=== PATIENT | female | born 1965 | race Caucasian/White ===

== ENCOUNTER 2016-05-01 10:01 | Outpatient (CLI) | payer MEDICAID | END 2016-05-01 10:02 | disposition home or self-care (01) | DX: Z12.31 Encounter for screening mammogram for malignant neoplasm of breast (principal) ==

== ENCOUNTER 2016-09-29 09:17 | Outpatient (CLI) | payer MEDICAID | END 2016-09-29 09:18 | disposition home or self-care (01) | LOC: RT.S 09:17 | PROVIDERS: ATTEND Nurse Practitioner Family | DX: R07.89 Other chest pain (principal) | CPT/HCPCS: 93005 ==

== ENCOUNTER 2016-10-02 10:11 | Outpatient (CLI) | payer MEDICAID ==
[2016-10-02 18:07] LABS: BASOPHILS % (AUTO) 0.9 %; EOSINOPHILS # (AUTO) 0.4 10^3/uL (0.0-0.7); EOSINOPHILS % (AUTO) 6.7 %; HCT - HEMATOCRIT 42.2 % (37.0-47.0); HGB - HEMOGLOBIN 14.1 g/dL (12.0-16.0); LYMPHOCYTES # (AUTO) 1.2 10^3/uL (1.5-3.5); LYMPHOCYTES % (AUTO) 22.3 %; MEAN CORPUSCULAR HEMOGLOBIN 30.7 pg (27.0-31.0); MEAN CORPUSCULAR HGB CONC 33.5 g/dL (32.0-36.0); MEAN CORPUSCULAR VOLUME 91.6 fL (81.0-99.0); MEAN PLATELET VOLUME 8.5 fL (7.9-10.8); MONOCYTES # (AUTO) 0.4 10^3/uL (0.0-1.0); MONOCYTES % (AUTO) 8.3 %; NEUTROPHILS # (AUTO) 3.3 10^3/uL (1.5-6.6); NEUTROPHILS % (AUTO) 61.8 %; NUCLEATED RED BLOOD CELLS AUTO 0.1 /100WBC; RED CELL DISTRIBUTION WIDTH 13.9 % (12.0-15.0); UNCORRECTED WHITE BLOOD COUNT 5.3 x10^3/uL; WHITE BLOOD COUNT 5.3 x10^3/uL (4.8-10.8)
[2016-10-02 18:28] LABS: ALBUMIN/GLOBULIN RATIO 1.2 (1.0-2.2); BILIRUBIN,TOTAL 0.4 mg/dL (0.2-1.0); BUN - BLOOD UREA NITROGEN 12 mg/dL (6-20); CARBON DIOXIDE - CO2 30 mmol/L (21-32); CHLORIDE 102 mmol/L (101-111); CHOL/HDL RATIO 2.9 (<4.4); CHOLESTEROL 217 mg/dL; CREATININE 0.6 mg/dL (0.4-1.0); GFR - MDRD 105 (>89); GLUCOSE 89 mg/dL (70-100); HDL CHOLESTEROL 74 mg/dL; LDL/HDL RATIO 1.7 (<4.4); POTASSIUM 3.7 mmol/L (3.5-5.0); SODIUM 139 mmol/L (135-145); TOTAL PROTEIN 7.2 g/dL (6.7-8.2); TRIGLYCERIDES 68 mg/dL; VLDL CHOLESTEROL 14 mg/dL
== END 2016-10-02 10:12 | disposition home or self-care (01) ==
LOC: LAB.S 10:11
PROVIDERS: ATTEND Nurse Practitioner Family
DX: R53.83 Other fatigue (principal); R07.89 Other chest pain; M79.1 Myalgia
CPT/HCPCS: 36415; 80053; 80061; 84443; 85025; 85651; 86140

== ENCOUNTER 2016-12-15 11:15 | Outpatient (CLI) | payer MEDICAID ==
[2016-12-15 18:57] LABS: BILIRUBIN,URINE NEGATIVE (NEGATIVE)
[2016-12-15 19:17] LABS: WBC,URINE >25 /HPF (0-5)
[2016-12-15 19:18] LABS: UR CULTURE IF IND INDICATED
== END 2016-12-15 11:16 | disposition home or self-care (01) ==
LOC: LAB.R 11:15
PROVIDERS: ATTEND Nurse Practitioner Family
DX: N39.0 Urinary tract infection, site not specified (principal)
CPT/HCPCS: 81001; 87086

== ENCOUNTER 2017-01-04 13:56 | Outpatient (CLI) | payer MEDICAID ==
--- NOTE | 2017-01-04 18:14 | XRAY Report ---
FOUR-VIEW RIGHT KNEE: 01/04/2017 CLINICAL INDICATION: Pain. FINDINGS: Frontal, lateral, bilateral oblique views of the right knee demonstrate no evidence of fra cture or dislocation. Minimal osteoarthritis is present, with a tiny medial osteophyte. There is no effusion. No radiopaque foreign body is seen in the soft tissues. IMPRESSION: MINIMAL OSTEOARTHRITIS. NO EVIDENCE OF FRACTURE. JOB #: [id number] EXT JOB #:[id number]
== END 2017-01-04 13:57 | disposition home or self-care (01) ==
LOC: DI.S 13:56
PROVIDERS: ATTEND Nurse Practitioner Family
DX: M17.11 Unilateral primary osteoarthritis, right knee (principal)

== ENCOUNTER 2017-01-22 08:00 | Outpatient (CLI) | payer MEDICAID | END 2017-01-22 08:01 | disposition home or self-care (01) | LOC: LAB.R 08:00 | PROVIDERS: ATTEND Nurse Practitioner Family | DX: Z79.891 Long term (current) use of opiate analgesic (principal) | CPT/HCPCS: 80307 ==

== ENCOUNTER 2018-01-22 08:41 | Outpatient (CLI) | payer MEDICAID ==
[2018-01-22 19:41] LABS: MUDS CUTOFF CONCENTRATIONS CUTOFF CONC BELOW:
[2018-01-22 20:20] LABS: COCAINE SCREEN URINE NEGATIVE (NEGATIVE); METHAMPHETAMINES SCREEN, URINE NEGATIVE (NEGATIVE); OPIATE SCREEN, URINE NEGATIVE (NEGATIVE)
[2018-01-22 20:21] LABS: AMPHETAMINE SCREEN,URINE NEGATIVE (NEGATIVE); BENZODIAZEPINES SCREEN, URINE NEGATIVE (NEGATIVE); METHADONE SCREEN, URINE NEGATIVE (NEGATIVE); OXYCODONE SCREEN, URINE NEGATIVE (NEGATIVE); PROPOXYPHENE SCREEN, URINE NEGATIVE (NEGATIVE); TRICYCLIC ANTIDEPRESSANT,URINE NEGATIVE (NEGATIVE)
== END 2018-01-22 08:42 | disposition home or self-care (01) ==
LOC: LAB.R 08:41
PROVIDERS: ATTEND Nurse Practitioner Family
DX: Z79.891 Long term (current) use of opiate analgesic (principal)
CPT/HCPCS: 80306

== ENCOUNTER 2018-02-04 10:41 | Outpatient (CLI) | payer MEDICAID ==
--- NOTE | 2018-02-04 15:26 | Ultrasound Report ---
Reason: POSTMENOPAUSAL BLEEDING, MENOMETRORRHAGIA Procedure Date: 02/04/2018 Accession Number: [id number] / [id number] Procedure: US - Pelvic w/Transvaginal CPT Code: FULL RESULT: EXAM: PELVIC ULTRASOUND EXAM DATE: 02/04/2018 11:37 AM. CLINICAL HISTORY: Postmenopausal bleeding, menometrorrhagia. COMPARISON: None. TECHNIQUE: Realtime transabdominal pelvic scan performed to identify the uterus and adnexa and as an overview of other pelvic structures, followed by transvaginal scan to provide greater detail of the uterus and adnexa, with static image documentation. FINDINGS: The examination is limited by poor acoustic windows. Uterus: 6.8 x 3.2 x 4.2 cm, volume 48 cc. Anteverted position. Normal overall size and echotexture. Masses: None. Endometrium: 4 mm. Normal. Cervix: Unremarkable. The bilateral ovaries were not seen by transabdominal or transvaginal fashion. Free Fluid: None. Other: None. IMPRESSION: Limited examination. No endometrial abnormalities identified. RADIA
== END 2018-02-04 10:42 | disposition home or self-care (01) ==
LOC: DI 10:41
PROVIDERS: ATTEND Nurse Practitioner Family
DX: N95.0 Postmenopausal bleeding (principal)
CPT/HCPCS: 76830; 76856

== ENCOUNTER 2018-02-12 12:00 | Outpatient (CLI) | payer MEDICAID ==
[2018-02-12 12:46] LABS: ALBUMIN/GLOBULIN RATIO 1.3 (1.0-2.2); BILIRUBIN,TOTAL 0.6 mg/dL (0.2-1.0); CREATININE 0.9 mg/dL (0.4-1.0); TOTAL PROTEIN 7.2 g/dL (6.7-8.2)
[2018-02-12 12:47] LABS: BASOPHILS % (AUTO) 0.6 %; EOSINOPHILS # (AUTO) 0.3 10^3/uL (0.0-0.7); EOSINOPHILS % (AUTO) 5.4 %; HGB - HEMOGLOBIN 14.1 g/dL (12.0-16.0); LYMPHOCYTES # (AUTO) 1.4 10^3/uL (1.5-3.5); LYMPHOCYTES % (AUTO) 25.9 %; MEAN CORPUSCULAR HEMOGLOBIN 30.7 pg (27.0-31.0); MEAN CORPUSCULAR HGB CONC 34.4 g/dL (32.0-36.0); MEAN CORPUSCULAR VOLUME 89.2 fL (81.0-99.0); MEAN PLATELET VOLUME 8.2 fL (7.9-10.8); MONOCYTES # (AUTO) 0.3 10^3/uL (0.0-1.0); MONOCYTES % (AUTO) 6.5 %; NEUTROPHILS # (AUTO) 3.3 10^3/uL (1.5-6.6); NEUTROPHILS % (AUTO) 61.6 %; PLT - PLATELET COUNT 279 10^3/uL (130-450); RED BLOOD COUNT 4.59 10^6/uL (4.20-5.40); RED CELL DISTRIBUTION WIDTH 13.8 % (12.0-15.0); WHITE BLOOD COUNT 5.3 x10^3/uL (4.8-10.8)
--- NOTE | 2018-02-12 15:03 | XRAY Report ---
Reason: POST LETICIA BLEEDING Procedure Date: 02/12/2018 Accession Number: [id number] / [id number] Procedure: XR - Chest 2 View X-Ray CPT Code: 33189 FULL RESULT: EXAM: CHEST RADIOGRAPHY EXAM DATE: 02/12/2018 12:48 PM. CLINICAL HISTORY: Postmenopausal bleeding. Hysteroscopy with D and C. Preop. COMPARISON: 03/17/2016. TECHNIQUE: 2 views. FINDINGS: Lungs/Pleura: Linear right lower lung scar/atelectasis. Interstitium is prominent. No consolidation. No vascular congestion. No pneumothorax. No pleural effusions. Mediastinum: Heart size is normal. Aorta is mildly tortuous. Small hiatal hernia. Other: Degenerative changes of the thoracic spine. IMPRESSION: 1. No acute disease in the chest. RADIA
== END 2018-02-12 12:01 | disposition home or self-care (01) ==
LOC: LAB 12:00 → DI 12:01
PROVIDERS: ATTEND Obstetrics & Gynecology
DX: Z01.818 Encounter for other preprocedural examination (principal); N95.0 Postmenopausal bleeding
CPT/HCPCS: 36415; 71046; 80053; 85025; 86850; 86900; 86901

== ENCOUNTER 2018-02-13 07:56 | Day surgery (SDC) | payer MEDICAID ==
[2018-02-13] MEDS ORDERED: ceFAZolin 2 GM/50 ML 2 GM/50 ML BAG IV ONE (08:02)
[2018-02-13] MEDS ORDERED: LACTATED RINGERS 1,000 ML IV ONE (08:26)
--- NOTE | 2018-02-13 09:08 | ANESTHESIA ---
Pre-Anesthesia VS, & Labs - Diagnosis Post menopausal bleeding - Procedure Hysterscopy w/ D&C Vital Signs: Temp Pulse Resp BP Pulse Ox 36.1 C L 92 16 151/92 H 96 02/13/18 08:10 02/13/18 08:10 02/13/18 08:10 02/13/18 08:10 02/13/18 08:10 Height 5 ft 3 in Weight (kg) 113.7 kg - NPO >8 hours - Is Patient ?: No Home Medications and Allergies Home Medications: Ambulatory Orders Acetaminophen [Tylenol Extra Strength] 500 mg PO 02/13/18 Bupropion HCl [Bupropion Xl] 150 mg PO 02/13/18 hydroCHLOROthiazide [Hydrochlorothiazide] 25 mg PO 02/13/18 Citalopram Hydrobromide [Citalopram HBr] 40 mg PO DAILY 12/23/14 Mesalamine [Lialda] 2 tab PO BID 12/23/14 Acetaminophen [Tylenol Extra Strength] 500 mg PO 02/13/18 Bupropion HCl [Bupropion Xl] 150 mg PO 02/13/18 hydroCHLOROthiazide [Hydrochlorothiazide] 25 mg PO 02/13/18 Allergies/Adverse Reactions: Allergies Allergy/AdvReac Type Severity Reaction Status Date / Time Latex, Natural Rubber Allergy Intermediate Hives Verified 02/12/18 12:29 pineapple Allergy Hives Verified 02/12/18 12:29 wool Allergy Rash Verified 02/12/18 12:29 zheng butter Allergy Rash Uncoded 02/12/18 12:29 Anes History & Medical History - Anesthetic History Anesthesia Complications: reports: No previous complications - Medical History Cardiovascular: reports: Hypertension Pulmonary: reports: None Gastrointestinal: reports: GERD (Resolved since lap zuleyma), Hiatal hernia, Colon polyps, Ulcerative colitis, Crohn's disease Urinary: reports: None Neuro: reports: None Musculoskeletal: reports: Osteoarthritis, Chronic back pain Endocrine/Autoimmune: reports: None Blood Disorders: reports: None Skin: reports: Eczema Smoking Status: Current every day smoker (1/2 pk per day for 20+ years) Psychosocial: reports: Depression, Anxiety - Surgical History General: Hiatal hernia repair, Colonoscopy, EGD Exam General: Alert, Oriented x3, Cooperative, No acute distress Dental: WNL, Other (Broken molar left lower side) Mouth Openin Fingerbreadth Neck Mobility: Normal Mallampati classification: II Thyromental Distance: less than 4 cm Respiratory: Lungs clear, Normal breath sounds, No respiratory distress, No acc essory muscle use Cardiovascular: Regular rate, Normal S1, Normal S2, No murmurs Mental/Cognitive Status: Alert/Oriented X3, Normal for patient Cognitive Status: Within normal limits Plan Anesthesia Type: General Consent for Procedure(s) Verified and Reviewed: Yes Code Status: Attempt Resuscitation ASA classification: 3-Severe systemic disease Is this case an emergency?: No
[2018-02-13] MEDS ORDERED: DEXAMETHASONE 4 MG/ML VIAL IVP ONE (09:45)
[2018-02-13] MEDS ORDERED: PROPOFOL 200 MG/20 ML VIAL IVP ONE (09:45)
[2018-02-13] MEDS ORDERED: fentaNYL 100 MCG/2 ML VIAL IVP ONE (09:45)
[2018-02-13] MEDS ORDERED: ONDANSETRON 4 MG/2 ML VIAL IVP ONE (09:45)
[2018-02-13] MEDS ORDERED: KETOROLAC 30 MG/ML VIAL IVP ONE (09:45)
[2018-02-13] MEDS ORDERED: LIDOCAINE-MPF 2% 5 ML VIAL IM ONE (09:45)
[2018-02-13] MEDS ORDERED: MIDAZOLAM 2 MG/2 ML VIAL IVP ONE (09:45)
--- NOTE | 2018-02-13 10:17 | OPERATIVE REPORT ---
Operative Report - General Procedure Date: 02/13/18 Planned Procedure: hysterscopy with D&D Pre-Op Diagnosis: postmenopausel bleeding Procedure Performed: hysterscopy with D&D Post Op Diagnosis: endometrial polyp - Procedure Note Primary Surgeon: Desmond Rogers MD Anesthesia Provider: George Wilson CRNA Anesthesia Technique: General LMA Pathology: endometrial polyps and endometrium IV Fluids (mL): 600 Estimated Blood Loss (mL): 5 Urine Output (mL): 20 Complications: 350 ml deficit with Normal saline #[id number]
[2018-02-13] MEDS ORDERED: ACETAMINOPHEN 1,000 MG/100 ML 100 ML IV ONE (10:19)
[2018-02-13] MEDS ORDERED: LORazepam 2 MG/ML VIAL IVP PRN (10:32)
[2018-02-13] MEDS ORDERED: ONDANSETRON 4 MG/2 ML VIAL IVP PRN (10:32)
[2018-02-13] MEDS ORDERED: HYDROmorphone 0.5 MG/0.5 ML SYRINGE IVP PRN (10:32)
[2018-02-13] MEDS ORDERED: HYDROcod/ACETAM 5/325 MG TABLET PO PRN (10:32)
[2018-02-13] MEDS ORDERED: HYDROcod/ACETAM 5/325 MG TABLET ONE (10:59)
[2018-02-13 11:33] VITALS: BP 100/80
--- NOTE | 2018-02-13 13:27 | OPERATIVE REPORT ---
DATE OF SERVICE: 02/13/2018 Physician: Desmond Rogers MD PREOPERATIVE DIAGNOSIS: Postmenopausal bleeding. POSTOPERATIVE DIAGNOSIS: Postmenopausal bleeding with endometrial polyps. PROCEDURE: Hysteroscopy with D and C. SURGEON: Desmond Rogers MD ANESTHESIA: General via LMA with George Wilson CRNA. ESTIMATED BLOOD LOSS: Less than 5 mL IV FLUIDS: 600 mL URINE OUTPUT: 20 mL. Fluid deficit with normal saline was 350. FINDINGS: Pelvic examination under anesthesia was unrewarding because of abdominal wall thickness. Upon entering the vagina. The cervix resided very high in the pelvic cavity. The endometrial cavity showed evidence of several polyps, both in the left and right cornual area. These were both removed as well as additional tissue being removed for pathologic evaluation. DESCRIPTION OF PROCEDURE: Following adequate general anesthesia via LMA, the patient was placed in t he dorsal lithotomy position in Octavio stirrups. At this point, she was prepped and draped in the usu al fashion. A timeout was performed, which concerns were addressed. A speculum was placed in the va vee. The cervix was visualized and noted to be residing very high in the pelvis. This was not unus ual considering she is a nulliparous woman. The cervix was grasped with a single-tooth tenaculum and then the os was identified. It was dilated up to 6 mm, sounded to 7 mm, and then the hysteroscope w as attempted to be placed. The cervix was dilated up an additional 1 mm to 7 and then the hysterosco pe was inserted without difficulty. The entire endometrial cavity was visualized and there were poly ps noted at both cornual areas. The remainder of the endometrial cavity showed a small sessile anter ior polyp; however, there was no evidence of any abnormal coloring or calcifications. So at this poi nt, the polyps were removed with the MyoSure LITE. Care was taken to assure that both polyps were co mpletely removed as well as the anterior polyp. Additional tissue was removed and sent for pathologi c evaluation. The endometrial cavity was reinspected. The polyps had been removed. There was no ev idence of any active bleeding. The hysteroscope was removed. The single-tooth tenaculum was release d. The patient was taken to recovery in stable condition. TD: 02/13/2018 10:38
== END 2018-02-13 07:57 | disposition home or self-care (01) ==
LOC: SDS 07:56
PROVIDERS: ATTEND Obstetrics & Gynecology
PROC: 0UDB8ZZ Extraction of Endometrium, Via Natural or Artificial Opening Endoscopic (ICD-10-PCS; principal; 2018-02-13 09:15)
DX: N95.0 Postmenopausal bleeding (principal); N84.0 Polyp of corpus uteri; I10 Essential (primary) hypertension; J45.909 Unspecified asthma, uncomplicated; F17.210 Nicotine dependence, cigarettes, uncomplicated; E66.01 Morbid (severe) obesity due to excess calories; Z80.49 Family history of malignant neoplasm of other genital organs; Z84.89 Family history of other specified conditions; Z80.0 Family history of malignant neoplasm of digestive organs; Z68.41 Body mass index [BMI] 40.0-44.9, adult
CPT/HCPCS: 58558; A9270; J0131; J0690; J7120

== ENCOUNTER 2018-04-23 10:01 | Observation (INO) | payer MEDICAID ==
[2018-04-23 10:22] LABS: BASOPHILS # (AUTO) 0.1 10^3/uL (0.0-0.1); EOSINOPHILS # (AUTO) 0.4 10^3/uL (0.0-0.7); EOSINOPHILS % (AUTO) 6.1 %; HGB - HEMOGLOBIN 13.8 g/dL (12.0-16.0); LYMPHOCYTES # (AUTO) 1.6 10^3/uL (1.5-3.5); MEAN CORPUSCULAR HEMOGLOBIN 30.4 pg (27.0-31.0); MEAN CORPUSCULAR HGB CONC 34.6 g/dL (32.0-36.0); MEAN CORPUSCULAR VOLUME 87.9 fL (81.0-99.0); MEAN PLATELET VOLUME 7.7 fL (7.9-10.8); MONOCYTES # (AUTO) 0.5 10^3/uL (0.0-1.0); MONOCYTES % (AUTO) 7.1 %; NEUTROPHILS # (AUTO) 4.2 10^3/uL (1.5-6.6); NEUTROPHILS % (AUTO) 61.8 %; PLT - PLATELET COUNT 291 10^3/uL (130-450); RED BLOOD COUNT 4.55 10^6/uL (4.20-5.40); RED CELL DISTRIBUTION WIDTH 13.9 % (12.0-15.0); WHITE BLOOD COUNT 6.7 x10^3/uL (4.8-10.8)
[2018-04-23 10:34] LABS: ALBUMIN 4.1 g/dL (3.2-5.5); ALBUMIN/GLOBULIN RATIO 1.2 (1.0-2.2); BILIRUBIN,TOTAL 0.3 mg/dL (0.2-1.0); CALCIUM 9.2 mg/dL (8.5-10.3); CREATININE 0.7 mg/dL (0.4-1.0); TOTAL PROTEIN 7.6 g/dL (6.7-8.2)
[2018-04-24] MEDS ORDERED: oxyCODONE 5 MG TABLET PO PRN (14:57)
[2018-04-24] MEDS ORDERED: ONDANSETRON 4 MG/2 ML VIAL IVP PRN ×2 (14:57→16:42)
[2018-04-24] MEDS ORDERED: LORazepam 2 MG/ML VIAL IVP PRN ×2 (14:57→16:42)
[2018-04-24] MEDS ORDERED: HYDROmorphone 1 MG/ML CARPUJECT IVP PRN ×2 (14:57→16:42)
[2018-04-24] MEDS ORDERED: ACETAMINOPHEN 500 MG TABLET PO SCH (15:00)
[2018-04-24] MEDS ORDERED: LACTATED RINGERS 1,000 ML IV SCH (15:00)
--- NOTE | 2018-04-24 16:12 | CONSULTATION NOTE ---
Referring Provider Name of Referring Provider:: Dr. Solitario Consult Date: 04/24/18 Chief Complaint - Chief Complaint Chief Complaint: wide complex tachycardia in ICU during OR case History of Present Illness - Admitted From Admitted From:: Home/PACU - History Obtained From Records Reviewed: [facility] History obtained from: [facility], Anesthesia Exam Limitations: she is sedated after surgery - History of Present Illness HPI Comment/Other: She is a 53 year old who has a PMH of undiagnosed JAYME and underwent an attempted Lap hyster converted to vag hyster. During the case she had a 6 beat run of a wide complex tachycardia and she has been consistently hypertensive since before the case started. She began the case at 178/100 and stayed high during the case. She has no hx of structural heart disease, no LVH, no CHF. She is described as a snorer. In the PACU there was some anxiety and she received ativan which made her snoring and apnea worse. She would desat to 70's% and then wake herself up w snore decorating consultant would gently touch shoulder and ask her to take a deep breath. Since the single run of the wide complex rhythm she has not had anymore arrhythmias, and post op EKG has NSR, no acute STTW changes. History - Past Medical History Cardiovascular: reports: Hypertension Respiratory: reports: None Neuro: reports: None Endocrine/Autoimmune: reports: None GI: reports: GERD, Hiatal hernia (with fundoplication 05/2015), Colon polyps (tubular adenoma, serrated), Crohn's disease (Usually quiescent. Only flares up when there is times of stress like this last year.) [employer]: reports: Other (, menopause 2013. 2018 postmenopausal bleeding. Hysteroscopy and D&C w polyp that was benign 01/10/18. Mom has Olvera syndrome and both mom and grandmom w endometrial ca. s/p Vag hyster after failed lap hyster with BSO today.) : reports: None HEENT: reports: Chronic vision loss Psych: reports: Depression (adjustment disorder), Anxiety, Claustrophobia Musculoskeletal: reports: Osteoarthritis Derm: reports: Eczema MRSA Hx?: No - Past Surgical History General: reports: Hiatal hernia repair, Colonoscopy, EGD, Other /[employer]: reports: Other ([facility]) - Family & Social History Family History Comment/Other: M grandmother from endometrial ca with Olvera syndrome. Mom alive w Olvera syndrome, OA. Father alive w OA, HTN, CAD w bypass and stent. Siblings: 1 brother healthy (all other sibs adopted). Children: 0 Living arrangement: At home Living Situation: With friend(s) Social History Notes: 1/2 pack per day cigarrettes since 1991. No alcohol abuse hx. She does smoke occasional cannabis or cannabis drops. But no history of cocaine, heroin, LSD, methamphetamines. She is from [place]. Lived in the [facility]. She was living with her boyfriend, and they broke up, and she did not have a job and did not have a place to live so moved in with her best friend 4 years ago [place]. She is been living here since. 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 She is worked at [employer], and has been on her feet all of her life. She has been disabled for over a year because of a deteriorated knee, and osteoarthritis of the right knee. She currently does have a boyfriend, but still lives with her best friend. - Substance History Use: Uses substance without health or social issues: Tobacco Abuse: Recurrent use of substance despite neg consequences: NONE Dependence: Experiences withdrawal or developed tolerances: NONE Tobacco Details: Cigarettes - POLST Patient has POLST: No POLST Status: Full Code Meds/Allgy - Home Medications Home Medications: Ambulatory Orders Medication Instructions Recorded Confirmed Citalopram Hydrobromide 20 mg PO DAILY 12/23/14 04/24/18 [Citalopram HBr] Mesalamine [Lialda] 2.4 gm PO BID 12/23/14 04/24/18 Acetaminophen [Tylenol Extra 500 mg PO Q6H PRN 02/13/18 04/24/18 Strength] Bupropion HCl [Bupropion Xl] 150 mg PO BID 02/13/18 04/24/18 hydroCHLOROthiazide 25 mg PO DAILY 02/13/18 04/24/18 [Hydrochlorothiazide] Albuterol Sulf [Ventolin Hfa 2 puffs INH Q4HR PRN 04/22/18 04/24/18 Inhaler] Zolpidem Tartrate 5 mg PO QPM 04/22/18 04/24/18 traMADol [Ultram] 50 mg PO BID PRN 04/22/18 04/24/18 - Allergies Allergies/Adverse Reactions: Allergies Allergy/AdvReac Type Severity Reaction Status Date / Time Latex, Natural Rubber Allergy Intermediate Hives Verified 02/12/18 12:29 emollient combination no. 21 Allergy Rash Verified 04/24/18 15:29 [From [employer] Butter] pineapple Allergy Hives Verified 02/12/18 12:29 wool Allergy Rash Verified 02/12/18 12:29 Review of Systems - Constitutional Constitutional: reports: Fatigue (all the time, even during the day), Other (ROS is from her roommate since patient is sedated and confused after anesthesia). denies: Fever, Chills, Weakness, Poor appetite, Diaphoresis, Night sweats - Eyes Eyes: reports: Blurred vision, Other (astigmatism). denies: Pain, Irritation, Amaurosis, Spots in vision, Field loss, Vision loss, Dipolpia - Ears, Nose & Throat Ears, Nose & Throat: denies: Ear pain, Hearing loss, Hearing aids, Tinnitus, Vertigo, Nasal pain, Nasal discharge, Nasal congestion, Postnasal drainage - Cardiovascular Cariovascular: reports: Exertional dyspnea, Decr. exercise tolerance (over the last few years, but can still walk on level ground and hikes w her boyfriend). denies: Irregular heart rate, Palpitations, Chest pain, Edema, Syncope - Respiratory Respiratory: reports: Snoring. denies: Cough, Sputum production, Wheezing, Hemoptysis, Orthopnea, SOB at rest, SOB with exertion, Apnea, Stridor - Gastrointestinal Gastrointestinal: reports: Abdominal pain (with flares of IBD), Abdominal distention, Diarrhea, Reflux/heartburn. denies: Constipation, Change in bowel habits, Rectal bleeding, Black stools, Bloody stools, Nausea, Vomiting - Genitourinary Genitourinary: denies: Dysuria, Frequency, Urgency, Hematuria, Incontinence - Musculoskeletal Musculoskeletal: reports: Back pain, Joint pain. denies: Muscle pain, Muscle aches, Stiffness, Limited range of motion, Muscle weakness - Integumentary Integumentary: denies: Rash, Pruritis, Lesions, Dryness - Neurological Neurological: denies: General weakness, Focal weakness, Headache, Dizziness, Numbness, Memory problems - Psychiatric Psychiatric: reports: Depression, Anxiety, Other (The last year has been really stressful on her. She was unemployed, having depend on her roommate for everything. Struggle to get disability. It was very difficult. This caused her inflammatory bowel disease to flare.) - Endocrine Endocrine: denies: Polyuria, Polydypsia, Polyphagia - Hematologic/Lymphatic Hematologic/Lymphatic: denies: Anemia, Bruising, Petechiae Exam - Vital Signs Reviewed Vital Signs: Yes - Physical Exam General Appearance: positive: Lethargic, Other (Short statured, moderately overweight white female with dyed hair, tattoos, confused in the postoperative setting with slurred speech, episodes of apnea requiring frequent prompting by the nurses to have a deep breath) Eyes Bilateral: positive: PERRL, EOMI ENT: positive: Dry mucous membranes Neck: positive: No JVD. negative: Stiff neck, Carotid bruit Respiratory: positive: Chest non-tender, Other (Snoring respirations when she falls asleep, followed by few moments of apnea, then normal respiration when stimulated. No respiratory distress.). negative: Wheezes, Rales, Rhonchi Cardiovascular: positive: Regular rate & rhythm. negative: Systolic murmur, G allop/S4, Friction rub Peripheral Pulses: positive: 1+ Abdomen: positive: Other (Hypoactive bowel sounds, slightly distended from having a laparoscopic attempt. But no rebound or guarding. She is not comfortable with my palpation and does murmur, and is try to withdraw from pain. Asked me to not do that.) Skin: positive: Color nml, No rash, Warm, Dry Extremities: positive: Non-tender, No pedal edema Neurologic/Psychiatric: positive: CN's nml (2-12), Motor nml, Disoriented to person, Disoriented to time, Slurred/abnml speech Conclusion/Plan - Diagnosis Diagnosis: 1. Wide-complex tachycardia in a perioperative setting in a patient is morbidly obese, short statured, elevated blood pressure that may be chronic, and a history of possible sleep apnea. Differential diagnosis would include left ventricular hypertrophy with PVCs. Left ventricular hypertrophy with V. tach. A wide-complex tachycardia that is benign. Her postoperative EKG shows no signs of ischemia, but ischemia is a possibility. Exam is negative for valvular heart disease but that is a possibility. Plan: Continue to monitor t he patient while in ICU status. She will be placed in ICU not because of critical illness but because BiPAP policy in the hospital requires ICU stay. BiPAP as needed until she is more awake. Troponin to labs already drawn today, and another troponin hours later. Echocardiogram to assess left LV size and function. 2. Uncontrolled hypertension. Start MARTÍN inhibitor in the form of IV enalapril until she is awake enough to take p.o. Resume Hydrocort thiazide when more awake. 3. Possible obstructive sleep apnea on exam. Associated with daytime fatigue, snoring. Hypertension. Would recommend that she do outpatient sleep study. 4. Postoperative day #0 for vaginal hysterectomy and bilateral salpingo-oophorectomy. Dr. Solitario has written orders for postoperative nausea, pain, diet. - Lab Results Lab results reviewed: Yes Kraig Bones: 04/23/18 10:14 04/24/18 16:38 - Diagnostic Imaging Results Diagnostic Imaging Results Comments: Chest x ray ordered and pending. - EKG Results EKG Interpreted Independently: Yes EKG Comparison: No prior EKG EKG Findings: NSR. Nml R wave progresson. No acute STTW changes.
[2018-04-24 16:51] LABS: CALCIUM 8.5 mg/dL (8.5-10.3); CREATININE 0.8 mg/dL (0.4-1.0)
[2018-04-24] MEDS: ENALAPRILAT 1.25 MG/ML VIAL IVP SCH (18:03)
[2018-04-24] MEDS: ACETAMINOPHEN 500 MG TABLET PO SCH (18:50)
[2018-04-24] MEDS: POTASSIUM CHLORIDE 20 MEQ/15 ML UDC PO SCH (18:53)
[2018-04-24] MEDS: KETOROLAC 30 MG/ML VIAL IVP PRN (19:35)
--- NOTE | 2018-04-24 19:37 | XRAY Report ---
Reason: apnea, vtach in OR Procedure Date: 04/24/2018 Accession Number: [id number] / [id number] Procedure: XR - Chest 1 View X-Ray CPT Code: 53450 FULL RESULT: EXAM: CHEST RADIOGRAPHY EXAM DATE: 04/24/2018 04:37 PM. CLINICAL HISTORY: Apnea, vtach in OR. COMPARISON: CHEST 2 VIEW 02/12/2018 12:43 PM. TECHNIQUE: 1 view. FINDINGS: Lungs/Pleura: No dense consolidation. No large effusion or pneumothorax. No pulmonary edema. Mediastinum: Heart and mediastinal contours are unremarkable. Other: None. IMPRESSION: No acute radiographic pulmonary abnormalities. RADIA
[2018-04-24] MEDS: LACTATED RINGERS 1,000 ML IV SCH (20:07)
[2018-04-24] MEDS: DOCUSATE SODIUM 100 MG CAPSULE PO SCH (20:39)
[2018-04-24] MEDS: CHLORHEXIDINE GLUCONATE 15 ML UDC PO SCH (20:47)
[2018-04-24] MEDS ORDERED: DOCUSATE SODIUM 100 MG CAPSULE PO SCH (21:00)
[2018-04-25] MEDS: ENALAPRILAT 1.25 MG/ML VIAL IVP SCH ×2 (00:27→05:14)
[2018-04-25] MEDS: ACETAMINOPHEN 500 MG TABLET PO SCH ×2 (00:53→08:45)
[2018-04-25] MEDS: KETOROLAC 30 MG/ML VIAL IVP PRN (04:26)
[2018-04-25] MEDS: LACTATED RINGERS 1,000 ML IV SCH ×2 (04:29→14:22)
[2018-04-25] MEDS: oxyCODONE 5 MG TABLET PO PRN ×3 (04:32→12:31)
[2018-04-25] MEDS ORDERED: PANTOPRAZOLE 40 MG VIAL IVP SCH (07:00)
[2018-04-25] MEDS ORDERED: SODIUM CHLORIDE FLUSH 0.9% 10 ML SYRINGE ONE ×2 (07:21→09:12)
[2018-04-25 08:27] LABS: CALCIUM 8.5 mg/dL (8.5-10.3); CREATININE 0.8 mg/dL (0.4-1.0)
[2018-04-25] MEDS: POTASSIUM CHLORIDE 20 MEQ/15 ML UDC PO SCH (08:45)
[2018-04-25] MEDS: CHLORHEXIDINE GLUCONATE 15 ML UDC PO SCH (08:47)
[2018-04-25 08:48] LABS: BASOPHILS % (AUTO) 0.3 %; EOSINOPHILS # (AUTO) 0.2 10^3/uL (0.0-0.7); EOSINOPHILS % (AUTO) 2.7 %; HGB - HEMOGLOBIN 12.8 g/dL (12.0-16.0); LYMPHOCYTES # (AUTO) 1.3 10^3/uL (1.5-3.5); LYMPHOCYTES % (AUTO) 15.4 %; MEAN CORPUSCULAR HEMOGLOBIN 30.7 pg (27.0-31.0); MEAN CORPUSCULAR HGB CONC 34.3 g/dL (32.0-36.0); MEAN CORPUSCULAR VOLUME 89.6 fL (81.0-99.0); MEAN PLATELET VOLUME 8.3 fL (7.9-10.8); MONOCYTES # (AUTO) 0.5 10^3/uL (0.0-1.0); MONOCYTES % (AUTO) 5.4 %; NEUTROPHILS # (AUTO) 6.6 10^3/uL (1.5-6.6); NEUTROPHILS % (AUTO) 76.2 %; PLT - PLATELET COUNT 280 10^3/uL (130-450); RED BLOOD COUNT 4.15 10^6/uL (4.20-5.40); RED CELL DISTRIBUTION WIDTH 13.8 % (12.0-15.0); WHITE BLOOD COUNT 8.7 x10^3/uL (4.8-10.8)
[2018-04-25] MEDS: DOCUSATE SODIUM 100 MG CAPSULE PO SCH (08:48)
[2018-04-25] MEDS ORDERED: LISINOPRIL 5 MG TABLET PO SCH (09:00)
[2018-04-25] MEDS ORDERED: CITALOPRAM 10 MG TABLET PO SCH (09:00)
[2018-04-25] MEDS ORDERED: hydroCHLOROthiazide 25 MG TABLET PO SCH (09:00)
[2018-04-25] MEDS ORDERED: buPROPion XL 150 MG TABLET PO SCH (09:00)
[2018-04-25] MEDS ORDERED: MESALAMINE 400 MG CAPSULE PO SCH (09:00)
--- NOTE | 2018-04-25 09:05 | Discharge Plan ---
Discharge Plan Disposition: Home, Self Care Condition: Good Prescriptions: Lisinopril [Zestril] 5 mg PO DAILY #30 tablet Potassium Chloride 20 meq PO DAILY #30 tablet.er Diet: Cardiac Activity Restrictions: Activity as Tolerated (and as per instructions from Dr. Rogers) Shower Restrictions: Yes (per Dr. Rogers) Driving Restrictions: No Instruction Topics: Hysterectomy Recovery Additional Instructions or Follow Up instructions: While you had surgery, you had a very short burst of an irregular heartbeat that we call a "wide-complex tachycardia". Everything else was normal during that event. Oxygen, blood pressure, all remain normal. For caution sake, we monitored you carefully overnight. The only thing we found abnormal was a low potassium and we have been giving you potassium. We also found you to have fairly severe obstructive sleep apnea in the recovery after surgery. The results of an ultrasound of your heart ( an Echocardiogram) are pending at the time of discharge. Please make sure your primary care provider goes over this report with you. I would also recommend that your primary care provider check your potassium level on April 26 and April 29. I am sending you home on a potassium prescription. The other thing we noticed during your stay was severely elevated blood pressure. Before you went to the operating room you were 170/100. During surgery and immediately after surgery you remained high. As such I started you on a new blood pressure pill called lisinopril. Your primary care provider will need to check your blood pressure on this new medicine. Please follow-up with Dr. Rogers per his instructions. And please see your primary care provider in the next 1-2 weeks. I already called the office to let them know you need potassium checked and spoke to SIMIN Dan. Go to [facility] on Sunday for the blood test and you can go to [place] or [place] on Sunday for the blood draw. No Smoking: If you smoke, Please STOP! Call for help.
--- NOTE | 2018-04-25 11:01 | PROVIDER PROGRESS NOTE ---
Subjective - Prog Note Date Prog Note Date: 04/25/18 Prog Note Time: 10:48 - Subjective Pt reports feeling: Improved Subjective: She eventually completely woke up after surgery. Did not need the BiPAP after all. Although I put her in ICU, she was not ICU status. She was only there because policy in this hospital requires BiPAP patients to be in ICU. She had no further recurrence of arrhythmias on telemetry. Blood pressure remained stable. She has been in the 120s over 70s. 99% on room air. Potassium is still low this morning. Is 3.1 even after supplementation. Current Medications - Current Medications Current Medications: Active Medications Acetaminophen (Tylenol) 1,000 mg PO Q8H COUNT INCLUDES THE [facility] Last Admin: 04/25/18 08:45 Dose: 1,000 mg Bupropion HCl (Wellbutrin Xl) 150 mg PO BID COUNT INCLUDES THE [facility] Last Admin: 04/25/18 08:45 Dose: 150 mg Chlorhexidine Gluconate (Peridex) 15 ml PO BID COUNT INCLUDES THE [facility] Last Admin: 04/25/18 08:47 Dose: Not Given Citalopram Hydrobromide (Celexa) 20 mg PO DAILY COUNT INCLUDES THE [facility] Last Admin: 04/25/18 08:48 Dose: 20 mg Docusate Sodium (Colace 100mg Capsule) 100 mg PO BID COUNT INCLUDES THE [facility] Last Admin: 04/25/18 08:48 Dose: 100 mg Hydrochlorothiazide (Hydrodiuril) 25 mg PO DAILY COUNT INCLUDES THE [facility] Last Admin: 04/25/18 08:44 Dose: 25 mg Hydromorphone HCl (Dilaudid Inj Carp) 0.5 mg IVP Q30M PRN PRN Reason: Breakthrough Pain Last Admin: 04/25/18 10:47 Dose: 0.5 mg Lactated Ringer's (Lr) 1,000 mls @ 100 mls/hr IV .Q10H COUNT INCLUDES THE [facility] Last Infusion: 04/25/18 08:15 Dose: Infused Ketorolac Tromethamine (Toradol Inj (30mg)) 30 mg IVP Q6HR PRN PRN Reason: PAIN Stop: 04/29/18 16:43 Last Admin: 04/25/18 04:26 Dose: 30 mg Lisinopril (Zestril) 5 mg PO DAILY COUNT INCLUDES THE [facility] Last Admin: 04/25/18 08:48 Dose: 5 mg Lorazepam (Ativan Inj (Vial)) 0.5 mg IVP Q2H PRN PRN Reason: Anxiety Last Admin: 04/24/18 20:53 Dose: 0.5 mg Ondansetron HCl (Zofran Inj) 4 mg IVP Q6HR PRN PRN Reason: Nausea / Vomiting Oxycodone HCl (Roxicodone) 10 mg PO Q4HR PRN PRN Reason: PAIN Last Admin: 04/25/18 08:47 Dose: 10 mg Pantoprazole Sodium (Protonix) 40 mg IVP QDAC COUNT INCLUDES THE [facility] Last Admin: 04/25/18 07:20 Dose: 40 mg Lialda 1.2 Gram (Tablet) 2 each PO BID COUNT INCLUDES THE [facility] Last Admin: 04/25/18 09:00 Dose: Not Given Potassium Chloride () 40 meq PO DAILYWM COUNT INCLUDES THE [facility] Last Admin: 04/25/18 08:45 Dose: 40 meq Citalopram Hydrobromide [Citalopram HBr] 20 mg PO DAILY 12/23/14 Mesalamine [Lialda] 2.4 gm PO BID 12/23/14 Acetaminophen [Tylenol Extra Strength] 500 mg PO Q6H PRN 02/13/18 Bupropion HCl [Bupropion Xl] 150 mg PO BID 02/13/18 hydroCHLOROthiazide [Hydrochlorothiazide] 25 mg PO DAILY 02/13/18 Albuterol Sulf [Ventolin Hfa Inhaler] 2 puffs INH Q4HR PRN 04/22/18 Zolpidem Tartrate 5 mg PO QPM 04/22/18 traMADol [Ultram] 50 mg PO BID PRN 04/22/18 Objective - Vital Signs/Intake & Output Reviewed Vital Signs: Yes Vital Signs: Vital Signs x48h Temp Pulse Resp BP BP Pulse Ox 04/25/18 09:00 96 17 130/80 98 04/25/18 08:00 37.1 C 86 20 126/72 99 04/25/18 07:00 89 14 122/77 98 04/25/18 06:00 87 13 120/84 H 97 04/25/18 05:00 83 15 119/80 95 04/25/18 04:30 36.7 C 04/25/18 04:00 88 25 H 116/86 H 100 04/25/18 03:07 19 99 04/25/18 03:00 87 16 115/70 99 Intake & Output: Intake & Output 04/22/18 04/23/18 04/24/18 04/25/18 23:59 23:59 23:59 23:59 Intake Total 452.064 7143.333 Output Total 50 Balance 438.972 9859.333 - Objective General Appearance: positive: No acute distress, Alert Eyes Bilateral: positive: PERRL, EOMI ENT: positive: Pharynx nml Neck: positive: No JVD. negative: Stiff neck, Carotid bruit Respiratory: positive: Chest non-tender. negative: Wheezes, Rales, Rhonchi Cardiovascular: positive: Regular rate & rhythm. negative: Gallop/S4, Friction rub Abdomen: positive: No organomegaly, Nml bowel sounds, No distention Skin: positive: Warm, Dry Extremities: positive: Full ROM, No pedal edema Neurologic/Psychiatric: positive: Oriented x3, CN's nml (2-12), Motor nml, Other (Alert, very cheerful and funny personality. Her best friend/roommate is with her in the room. She concurs that Ms. Barrera is back to baseline.) - Lab Results Fish Bones: 04/25/18 07:50 04/25/18 07:50 Other Labs: Lab Results x24hrs 04/25/18 04/25/18 04/24/18 Range/Units 07:50 07:50 16:38 WBC 8.7 (4.8-10.8) x10^3/uL RBC 4.15 L (4.20-5.40) 10^6/uL Hgb 12.8 (12.0-16.0) g/dL Hct 37.2 (37.0-47.0) % MCV 89.6 (81.0-99.0) fL MCH 30.7 (27.0-31.0) pg MCHC 34.3 (32.0-36.0) g/dL RDW 13.8 (12.0-15.0) % Plt Count 280 (130-450) 10^3/uL MPV 8.3 (7.9-10.8) fL Neut # (Auto) 6.6 (1.5-6.6) 10^3/uL Lymph # (Auto) 1.3 L (1.5-3.5) 10^3/uL Mcpherson # (Auto) 0.5 (0.0-1.0) 10^3/uL Eos # (Auto) 0.2 (0.0-0.7) 10^3/uL Baso # (Auto) 0.0 (0.0-0.1) 10^3/uL Absolute Nucleated RBC 0.00 x10^3/uL Nucleated RBC % 0.0 /100WBC Sodium 138 (135-145) mmol/L Potassium 3.1 L (3.5-5.0) mmol/L Chloride 100 L (101-111) mmol/L Carbon Dioxide 30 (21-32) mmol/L Anion Gap 8.0 (6-13) BUN 17 (6-20) mg/dL Creatinine 0.8 (0.4-1.0) mg/dL Estimated GFR (MDRD) 74 L (>89) Glucose 104 H (70-100) mg/dL Calcium 8.5 (8.5-10.3) mg/dL Troponin I < 0.04 (<0.49) ng/mL 04/24/18 Range/Units 16:38 WBC (4.8-10.8) x10^3/uL RBC (4.20-5.40) 10^6/uL Hgb (12.0-16.0) g/dL Hct (37.0-47.0) % MCV (81.0-99.0) fL MCH (27.0-31.0) pg MCHC (32.0-36.0) g/dL RDW (12.0-15.0) % Plt Count (130-450) 10^3/uL MPV (7.9-10.8) fL Neut # (Auto) (1.5-6.6) 10^3/uL Lymph # (Auto) (1.5-3.5) 10^3/uL Mcpherson # (Auto) (0.0-1.0) 10^3/uL Eos # (Auto) (0.0-0.7) 10^3/uL Baso # (Auto) (0.0-0.1) 10^3/uL Absolute Nucleated RBC x10^3/uL Nucleated RBC % /100WBC Sodium 136 (135-145) mmol/L Potassium 3.4 L (3.5-5.0) mmol/L Chloride 100 L (101-111) mmol/L Carbon Dioxide 28 (21-32) mmol/L Anion Gap 8.0 (6-13) BUN 19 (6-20) mg/dL Creatinine 0.8 (0.4-1.0) mg/dL Estimated GFR (MDRD) 74 L (>89) Glucose 142 H (70-100) mg/dL Calcium 8.5 (8.5-10.3) mg/dL Troponin I (<0.49) ng/mL ABX Reporting Has patient been on IV antibiotics over the past 48 hours?: Yes Assessment/Plan - Problem List (1) Wide-complex tachycardia Impression: In a perioperative setting in a patient is morbidly obese, short statured, elevated blood pressure that may be chronic, and a history of possible sleep apnea. Differential diagnosis would include left ventricular hypertrophy with PVCs. Left ventricular hypertrophy with V. tach. A wide-complex tachycardia that is benign. Her postoperative EKG shows no signs of ischemia, but ischemia is a possibility. Exam is negative for valvular heart disease but that is a possibility. Plan: We continued to monitor the patient while in ICU status. She was placed in ICU not because of critical illness but because BiPAP policy in the hospital requires ICU stay. BiPAP as needed until she is more awake. She didn't end up needing it. Troponin enzymes were negative. Echocardiogram is normal ejection fraction, valve function. She does not have ventricular hypertrophy. As such, I suspect she had possible SVT. This was a result of her being placed in Trendelenburg for a brief moment of time with hypertension. She has no risk factors for V. tach, ejection fraction is normal. 2. Uncontrolled hypertension. Started MARTÍN inhibitor in the form of IV enalapril until she was awake enough to take p.o. I have started lisinopril 5 mg p.o. She can resume her hydrochlorthiazide. I have called that into the pharmacy. She will need a blood pressure check with her primary care provider in the next 1-2 weeks. 3. Possible obstructive sleep apnea on exam. Associated with daytime fatigue, snoring. Hypertension. Would recommend that she do outpatient sleep study. 4. Postoperative day #1 for vaginal hysterectomy and bilateral salpingo- oophorectomy. Dr. Solitario has written orders for postoperative nausea, pain, diet.She is being discharged by criteria. He is handling that order. 5. Hypokalemia She still needs supplementation this morning. She does not want to stay in the hospital to get her potassium up to normal. As such I am discharging her on potassium p.o. supplement. I have called her primary care provider office and they have scheduled her or ordered her to get a potassium check on April 26 and April 29 at my request.
[2018-04-25 13:14] VITALS: BP 113/68
== END 2018-04-25 14:10 | disposition home or self-care (01) ==
LOC: LAB 10:01 → OBS 04-24 14:57 → ICU 04-24 16:57
PROVIDERS: ADMIT Obstetrics & Gynecology; ATTEND Obstetrics & Gynecology
PROC: 0UT9FZZ Resection of Uterus, Via Natural or Artificial Opening With Percutaneous Endoscopic Assistance (ICD-10-PCS; principal; 2018-04-23)
PROC: 0UT24ZZ Resection of Bilateral Ovaries, Percutaneous Endoscopic Approach (ICD-10-PCS; 2018-04-23)
PROC: 0UT74ZZ Resection of Bilateral Fallopian Tubes, Percutaneous Endoscopic Approach (ICD-10-PCS; 2018-04-23)
PROC: 0TJB8ZZ Inspection of Bladder, Via Natural or Artificial Opening Endoscopic (ICD-10-PCS; 2018-04-23)
DX: D25.1 Intramural leiomyoma of uterus (principal); I97.791 Other intraoperative cardiac functional disturbances during other surgery; Y83.6 Removal of other organ (partial) (total) as the cause of abnormal reaction of the patient, or of later complication, without mention of misadventure at the time of the procedure; Y92.234 Operating room of hospital as the place of occurrence of the external cause; I10 Essential (primary) hypertension; E87.6 Hypokalemia; G47.33 Obstructive sleep apnea (adult) (pediatric); E66.01 Morbid (severe) obesity due to excess calories; Z68.42 Body mass index [BMI] 45.0-49.9, adult; N72 Inflammatory disease of cervix uteri; N83.02 Follicular cyst of left ovary; N83.8 Other noninflammatory disorders of ovary, fallopian tube and broad ligament; N83.01 Follicular cyst of right ovary; F17.210 Nicotine dependence, cigarettes, uncomplicated; F43.21 Adjustment disorder with depressed mood; F41.9 Anxiety disorder, unspecified; F32.9 Major depressive disorder, single episode, unspecified; K21.9 Gastro-esophageal reflux disease without esophagitis; K50.90 Crohn's disease, unspecified, without complications; H52.209 Unspecified astigmatism, unspecified eye; Z72.89 Other problems related to lifestyle; Z80.49 Family history of malignant neoplasm of other genital organs; Z79.52 Long term (current) use of systemic steroids
CPT/HCPCS: 36415; 58552; 71045; 80048; 80053; 84484; 85025; 86850; 86900; 86901; 87150; 93005; 93306; 94660; 94770; A9270; G0378; J0131; J0690; J1170; J2060; J3010; J3490; J7120

== ENCOUNTER 2018-04-24 07:55 | Day surgery (SDC) | payer MEDICAID ==
--- NOTE | 2018-04-24 07:52 | ANESTHESIA ---
Pre-Anesthesia VS, & Labs - Diagnosis Post menopausal bleeding - Procedure Laparascopic hysterectomy Height 5 ft 3 in - NPO >8 hours - Is Patient ?: No - Lab Results Lab results reviewed: Yes Home Medications and Allergies Home Medications: Ambulatory Orders Albuterol Sulf [Ventolin Hfa Inhaler] 1 - 2 puffs INH Q4HR PRN 04/22/18 Triamcinolone 0.1% Cream [Kenalog 0.1% Cream] 15 gm TOP DAILY 04/22/18 Zolpidem Tartrate 5 mg PO QPM 04/22/18 traMADol [Ultram] 50 mg PO BID 04/22/18 Citalopram Hydrobromide [Citalopram HBr] 20 mg PO DAILY 12/23/14 Mesalamine [Lialda] 2 tab PO BID 12/23/14 Acetaminophen [Tylenol Extra Strength] 500 mg PO Q6H PRN 02/13/18 Bupropion HCl [Bupropion Xl] 150 mg PO BID 02/13/18 hydroCHLOROthiazide [Hydrochlorothiazide] 25 mg PO DAILY 02/13/18 Albuterol Sulf [Ventolin Hfa Inhaler] 1 - 2 puffs INH Q4HR PRN 04/22/18 Triamcinolone 0.1% Cream [Kenalog 0.1% Cream] 15 gm TOP DAILY 04/22/18 Zolpidem Tartrate 5 mg PO QPM 04/22/18 traMADol [Ultram] 50 mg PO BID 04/22/18 Allergies/Adverse Reactions: Allergies Allergy/AdvReac Type Severity Reaction Status Date / Time Latex, Natural Rubber Allergy Intermediate Hives Verified 02/12/18 12:29 pineapple Allergy Hives Verified 02/12/18 12:29 wool Allergy Rash Verified 02/12/18 12:29 zheng butter Allergy Rash Uncoded 02/12/18 12:29 Anes History & Medical History - Anesthetic History Anesthesia Complications: reports: Other-see comment (Post op N/V) Family history of Anesthesia Complications: Denies Family history of Malignant Hyperthermia: Denies - Medical History Cardiovascular: reports: Hypertension Pulmonary: reports: None Gastrointestinal: reports: GERD, Hiatal hernia, Crohn's disease Urinary: reports: None Neuro: reports: None Musculoskeletal: reports: Osteoarthritis Endocrine/Autoimmune: reports: None Blood Disorders: reports: None Skin: reports: Eczema Smoking Status: Current every day smoker (1/2 pk per day for 20+ years) Psychosocial: reports: No issues indicated - Surgical History General: Hiatal hernia repair, Colonoscopy, EGD, Other Gynecologic: Other (Myosure) Exam General: Alert Dental: WNL Mouth Opening: Greater than 4 Fingerbreadths Neck Mobility: Normal Mallampati classification: I Thyromental Distance: greater than 6 cm Respiratory: Lungs clear Cardiovascular: Regular rate Mental/Cognitive Status: Alert/Oriented X3 Cognitive Status: Within normal limits Plan Anesthesia Type: General Consent for Procedure(s) Verified and Reviewed: Yes Code Status: Attempt Resuscitation ASA classification: 2-Mild systemic disease Is this case an emergency?: No
[~2018-04-24 07:55] MED LIST: BUPIVACAINE 0.25%-EPI 1:200000 PF 30 ML VIAL ONE; METHYLENE BLUE 0.5% 50 MG/10 ML AMPULE ONE
[2018-04-24] MEDS ORDERED: ceFAZolin 2 GM/50 ML 2 GM/50 ML BAG IV ONE ×2 (08:13→12:43)
[2018-04-24] MEDS ORDERED: LACTATED RINGERS 1,000 ML IV ONE ×3 (08:29→13:59)
[2018-04-24] MEDS ORDERED: SCOPOLAMINE PATCH TOP ONE (08:54)
[2018-04-24] MEDS ORDERED: METHYLENE BLUE 0.5% 50 MG/10 ML AMPULE IVP ONE ×2 (10:21)
[2018-04-24] MEDS ORDERED: BUPIVACAINE 0.25%-EPI 1:200000 PF 30 ML VIAL SUBQ ONE (10:21)
[2018-04-24] MEDS ORDERED: ACETAMINOPHEN 1,000 MG/100 ML 100 ML IV ONE (12:43)
[2018-04-24] MEDS ORDERED: LIDOCAINE-MPF 2% 5 ML VIAL IM ONE (12:43)
[2018-04-24] MEDS ORDERED: ROCURONIUM 50 MG/5 ML VIAL IVP ONE (12:43)
[2018-04-24] MEDS ORDERED: NEOSTIGMINE 1 MG/1 ML 10 ML MDV IVP ONE (12:43)
[2018-04-24] MEDS ORDERED: MORPHINE 10 MG/ML VIAL IVP ONE (12:43)
[2018-04-24] MEDS ORDERED: fentaNYL 250 MCG/5 ML VIAL IVP ONE (12:43)
[2018-04-24] MEDS ORDERED: GLYCOPYRROLATE 1 MG/5 ML VIAL IVP ONE (12:43)
[2018-04-24] MEDS ORDERED: KETOROLAC 30 MG/ML VIAL IVP ONE (12:43)
[2018-04-24] MEDS ORDERED: PROPOFOL 200 MG/20 ML VIAL IVP ONE (12:43)
[2018-04-24] MEDS ORDERED: METOPROLOL 5 MG/5 ML VIAL IVP ONE (12:43)
[2018-04-24] MEDS ORDERED: IPRATROPIUM/ALBUTEROL 3 ML NEB INH ONE (15:02)
[2018-04-24] MEDS ORDERED: HYDROmorphone 1 MG/ML CARPUJECT ONE (15:23)
[2018-04-24] MEDS ORDERED: KETOROLAC 30 MG/ML VIAL IVP PRN (15:23)
[2018-04-24] MEDS ORDERED: HYDROmorphone 1 MG/ML CARPUJECT IVP PRN (15:25)
[2018-04-24] MEDS ORDERED: LORazepam 2 MG/ML VIAL IVP PRN (15:26)
[2018-04-24] MEDS ORDERED: ONDANSETRON 4 MG/2 ML VIAL IVP PRN (15:26)
[2018-04-24] MEDS ORDERED: oxyCODONE 5 MG TABLET PO PRN (15:27)
--- NOTE | 2018-04-24 15:27 | OPERATIVE REPORT ---
Operative Report - General Procedure Date: 04/24/18 Planned Procedure: TLH BSO cysto Pre-Op Diagnosis: Post menopausel bleeding, Family HX of flores syndrome Procedure Performed: LAVH BSO Cysto Post Op Diagnosis: Same - Procedure Note Primary Surgeon: Desmond Rogers MD Secondary Surgeon: Desmond Leal MD Anesthesia Provider: Duane Elias MD Anesthesia Technique: General ET tube Pathology: Uterus with cervix and both tubes and ovaries IV Fluids (mL): 2,200 Estimated Blood Loss (mL): 150 Complications: difficulty with Endostich
[2018-04-24] MEDS ORDERED: fentaNYL 100 MCG/2 ML VIAL ONE (15:39)
[2018-04-24] MEDS ORDERED: LORazepam 2 MG/ML VIAL ONE (15:51)
[2018-04-24] MEDS ORDERED: ACETAMINOPHEN 500 MG TABLET PO SCH (16:00)
[2018-04-24] MEDS ORDERED: LACTATED RINGERS 1,000 ML IV SCH (16:00)
[2018-04-24 16:40] VITALS: BP 137/75
[2018-04-24] MEDS ORDERED: DOCUSATE SODIUM 100 MG CAPSULE PO SCH (21:00)
--- NOTE | 2018-04-25 03:15 | OPERATIVE REPORT ---
DATE OF SERVICE: 04/24/2018 Physician: Desmond Rogers MD PREOPERATIVE DIAGNOSES 1. Postmenopausal bleeding. 2. Strong family history of endometrial cancer. 3. Family history of Olvera syndrome. POSTOPERATIVE DIAGNOSES 1. Postmenopausal bleeding. 2. Strong family history of endometrial cancer. 3. Family history of Olvera syndrome. PROCEDURE PERFORMED: Laparoscopically assisted vaginal hysterectomy, bilateral salpingo-oophorectomy, and cystoscopy. SURGEON: Desmond Rogers MD INVAS TECH: Desmond Leal MD ANESTHESIA: Duane Castro MD ANESTHETIC: General via endotracheal tube. MATERIALS TO PATHOLOGY: Uterus, cervix, both tubes and ovaries INTRAVENOUS FLUIDS: 2200 ESTIMATED BLOOD LOSS: 150 COMPLICATIONS: Difficulty, with the Endo Stitch malfunctioning. FINDINGS: Upon entering the abdominal cavity, there was a lot of redundant fat, as well as bowel. This made the visualization somewhat difficult. The tubes and ovaries appeared to be free of any disease. Upon placing the vaginal speculum, the cervix resided very high in the pelvic cavity. DESCRIPTION OF PROCEDURE: Following adequate endotracheal anesthesia, patient was placed in dorsal lithotomy position in [facility]. At this point, she was prepped and draped in the usual fashion. A timeout was performed, in which the areas of concerns were addressed. The possibility of having a long high cervix secondary to her never having had any children was discussed. At this point, a speculum was placed in the vagina. The cervix was visualized, grasped with a single-tooth tenaculum with some difficulty. The cervix was then brought down and then dilated up to a size 8 mm dilator. A medium VCare was then placed in the cervix and the balloon insufflated. At this point, the automatic punch press operator's gloves were changed and the 3 ports were placed in the abdominal wall in the subumbilical area, both left and right lower quadrants. These were all placed following skin incision with 0.25% skin incision with a #11 blade and 0.25% Marcaine anesthesia. All trocars were placed with some difficulty secondary to abdominal wall thickness. At this point, the cervix was visualized and inspected. There was no evidence of any adhesions; however, there was a lot of redundant fat and tissue in the pelvic area. The patient was placed in steep Trendelenburg. The right fallopian tube was then grasped, and the infundibulopelvic ligament was cauterized 3 times and then transected. At this point, the round ligament was also cauterized 2 times and then transected. The mesosalpinx was then cauterized and transected with the LigaSure. The anterior leaf of the broad ligament was cauterized and brought down to the lower uterine segment. Then, coming across the lower uterine segment, the LigaSure was used to cauterize and transect the peritoneum. The uterine vessels were then cauterized and transected on the right-hand side. Care was taken to ensure that these were cauterized and in their totality. This was brought all the way down to the uterosacral ligament. Good hemostasis was observed. At this point, the left side was treated in an identical fashion. The infundibulopelvic ligament was cauterized and transected, the round ligament cauterized and transected, and then the mesovarium was cauterized and transected. The anterior leaf of the broad ligament was then brought to the previous incision. Care was taken to ensure good hemostasis. Then, working along the left-hand side, the LigaSure was used to cauterize, transect all the way down to the uterosacral ligaments. Good hemostasis was observed. There was no evidence of bleeding from the pedicles. The bladder was then dissected off the lower uterine segment. Then, utilizing the Harmonic scalpel, the vagina was entered anteriorly. The cervix was then amputated from the apex of the vagina anteriorly and posteriorly. The LigaSure was used to cauterize and transect the posterior apical vagina. Care was taken to stay as close to the uterus was possible. Upon totally amputating the uterus, the Prestige clamp was used to put the uterus into the vagina. The VCare was removed and then a single-tooth tenaculum was used to grasp the cervix, and this was brought into the vaginal vault, occluding the vaginal vault to maintain a pneumoperitoneum. Then, the Endo Stitch was used to close the apex of the vagina; however, there was some difficulty with the Endo Stitch grasping the needle and, after 4 failed attempts, it was decided to try and utilize intracorporeal suturing. This was not able to be done secondary to adequate visualization. After 2 attempts, it was decided to go ahead and proceed vaginally. A weighted speculum was placed in the vagina. The edge of the vaginal cuff was grasped with Allis, and then [id number] of 0 Vicryl were placed. The apex of the vagina was well closed. At this time, there was no evidence of any bleeding. At this point, a cystoscopy was performed and there was evidence of good efflux of urine through both ureteral orifices. The pelvis was reinspected, there was no evidence of any further bleeding or clot at this time, so the right lower quadrant, which had been expanded to an 11 mm port, was closed utilizing a Edy-Chetan with 0 Vicryl. Then, the incisions were all closed subcuticularly with 4-0 Monocryl and injected with 0.25% Marcaine, and Dermabond was utilized. Patient tolerated the procedure well and was taken to Recovery in stable condition. Sponge and needle counts were correct. TD: 04/24/2018 16:57 REVISED 04/25/2018 jll ACCOUNT CORRECTION Orig. signed 04/25/2018@1348 CARMINE
== END 2018-04-24 07:56 | disposition critical access hospital (66) ==
LOC: SDS 07:55
PROVIDERS: ATTEND Obstetrics & Gynecology
PROC: 0UT74ZZ Resection of Bilateral Fallopian Tubes, Percutaneous Endoscopic Approach (ICD-10-PCS; 2018-04-24)
PROC: 0TJB8ZZ Inspection of Bladder, Via Natural or Artificial Opening Endoscopic (ICD-10-PCS; 2018-04-24)
PROC: 0UT9FZZ Resection of Uterus, Via Natural or Artificial Opening With Percutaneous Endoscopic Assistance (ICD-10-PCS; principal; 2018-04-24 09:37)
PROC: 0UT24ZZ Resection of Bilateral Ovaries, Percutaneous Endoscopic Approach (ICD-10-PCS; 2018-04-24 09:37)
DX: D25.1 Intramural leiomyoma of uterus (principal); N72 Inflammatory disease of cervix uteri; N83.8 Other noninflammatory disorders of ovary, fallopian tube and broad ligament; N83.02 Follicular cyst of left ovary; N83.01 Follicular cyst of right ovary; Z80.49 Family history of malignant neoplasm of other genital organs; F17.210 Nicotine dependence, cigarettes, uncomplicated; F43.21 Adjustment disorder with depressed mood; I10 Essential (primary) hypertension; K21.9 Gastro-esophageal reflux disease without esophagitis; K44.9 Diaphragmatic hernia without obstruction or gangrene; M19.90 Unspecified osteoarthritis, unspecified site; Z79.52 Long term (current) use of systemic steroids

== ENCOUNTER 2018-09-05 08:20 | Outpatient (CLI) | payer MEDICAID ==
[2018-09-05 10:04] LABS: BASOPHILS # (AUTO) 0.1 10^3/uL (0.0-0.1); EOSINOPHILS # (AUTO) 0.5 10^3/uL (0.0-0.7); EOSINOPHILS % (AUTO) 7.8 %; HGB - HEMOGLOBIN 14.4 g/dL (12.0-16.0); LYMPHOCYTES # (AUTO) 1.6 10^3/uL (1.5-3.5); LYMPHOCYTES % (AUTO) 28.2 %; MEAN CORPUSCULAR HEMOGLOBIN 29.6 pg (27.0-31.0); MEAN CORPUSCULAR HGB CONC 33.6 g/dL (32.0-36.0); MEAN CORPUSCULAR VOLUME 88.2 fL (81.0-99.0); MEAN PLATELET VOLUME 8.5 fL (7.9-10.8); MONOCYTES # (AUTO) 0.4 10^3/uL (0.0-1.0); MONOCYTES % (AUTO) 7.2 %; NEUTROPHILS # (AUTO) 3.2 10^3/uL (1.5-6.6); NEUTROPHILS % (AUTO) 55.8 %; PLT - PLATELET COUNT 316 10^3/uL (130-450); RED BLOOD COUNT 4.85 10^6/uL (4.20-5.40); RED CELL DISTRIBUTION WIDTH 14.3 % (12.0-15.0); WHITE BLOOD COUNT 5.8 x10^3/uL (4.8-10.8)
[2018-09-05 10:27] LABS: ALKALINE PHOSPHATASE 70 IU/L (42-121); ALT ALANINE AMINOTRANSFERASE 24 IU/L (10-60); AST ASPARTATE AMINOTRANSFERASE 24 IU/L (10-42); BILIRUBIN,TOTAL 0.7 mg/dL (0.2-1.0); BUN - BLOOD UREA NITROGEN 17 mg/dL (6-20); CALCIUM 9.5 mg/dL (8.5-10.3); CARBON DIOXIDE - CO2 28 mmol/L (21-32); CHLORIDE 100 mmol/L (101-111); CHOLESTEROL 274 mg/dL; CREATININE 0.8 mg/dL (0.4-1.0); GFR - MDRD 74 (>89); GLUCOSE 104 mg/dL (70-100); HDL CHOLESTEROL 68 mg/dL; LDL CHOLESTEROL,CALCULATED 174 mg/dL; LDL/HDL RATIO 2.6 (<4.4); SODIUM 140 mmol/L (135-145); TOTAL PROTEIN 7.9 g/dL (6.7-8.2); VLDL CHOLESTEROL 32 mg/dL
== END 2018-09-05 08:21 | disposition home or self-care (01) ==
LOC: LAB.F 08:20
PROVIDERS: ATTEND Nurse Practitioner
DX: I10 Essential (primary) hypertension (principal); E78.5 Hyperlipidemia, unspecified
CPT/HCPCS: 36415; 80053; 80061; 83721; 85025

== ENCOUNTER 2019-07-21 19:22 | Outpatient (CLI) | payer MEDICARE, MEDICAID | END 2019-07-21 19:23 | disposition home or self-care (01) | LOC: COV 19:22 | PROVIDERS: ATTEND Family Medicine | DX: R50.9 Fever, unspecified (principal); R05 Cough; M79.10 Myalgia, unspecified site; R53.83 Other fatigue; R19.7 Diarrhea, unspecified | CPT/HCPCS: 81599 ==

== ENCOUNTER 2019-11-04 10:50 | Outpatient (CLI) | payer MEDICARE, MEDICAID ==
[2019-11-04 15:07] LABS: BASOPHILS # (AUTO) 0.1 10^3/uL (0.0-0.1); BASOPHILS % (AUTO) 1.5 %; EOSINOPHILS # (AUTO) 0.3 10^3/uL (0.0-0.7); EOSINOPHILS % (AUTO) 6.9 %; HGB - HEMOGLOBIN 13.6 g/dL (12.0-16.0); LYMPHOCYTES # (AUTO) 1.3 10^3/uL (1.5-3.5); LYMPHOCYTES % (AUTO) 27.1 %; MEAN CORPUSCULAR HGB CONC 32.9 g/dL (32.0-36.0); MEAN CORPUSCULAR VOLUME 91.2 fL (81.0-99.0); MEAN PLATELET VOLUME 10.1 fL (7.9-10.8); MONOCYTES # (AUTO) 0.3 10^3/uL (0.0-1.0); MONOCYTES % (AUTO) 7.1 %; NEUTROPHILS # (AUTO) 2.7 10^3/uL (1.5-6.6); NEUTROPHILS % (AUTO) 57.2 %; PLT - PLATELET COUNT 320 10^3/uL (130-450); RED BLOOD COUNT 4.53 10^6/uL (4.20-5.40); RED CELL DISTRIBUTION WIDTH 13.3 % (12.0-15.0); WHITE BLOOD COUNT 4.7 x10^3/uL (4.8-10.8)
[2019-11-04 15:23] LABS: ALBUMIN 3.9 g/dL (3.2-5.5); ALBUMIN/GLOBULIN RATIO 1.1 (1.0-2.2); ALKALINE PHOSPHATASE 58 IU/L (42-121); ALT ALANINE AMINOTRANSFERASE 21 IU/L (10-60); AST ASPARTATE AMINOTRANSFERASE 20 IU/L (10-42); BILIRUBIN,TOTAL 0.4 mg/dL (0.2-1.0); BUN - BLOOD UREA NITROGEN 18 mg/dL (6-20); CALCIUM 9.2 mg/dL (8.5-10.3); CARBON DIOXIDE - CO2 31 mmol/L (21-32); CHLORIDE 98 mmol/L (101-111); CHOL/HDL RATIO 3.8 (<4.4); CHOLESTEROL 255 mg/dL; GLUCOSE 100 mg/dL (70-100); HDL CHOLESTEROL 67 mg/dL; LDL CHOLESTEROL,CALCULATED 167 mg/dL; LDL/HDL RATIO 2.5 (<4.4); SODIUM 139 mmol/L (135-145); TOTAL PROTEIN 7.5 g/dL (6.7-8.2); VLDL CHOLESTEROL 21 mg/dL
== END 2019-11-04 10:51 | disposition home or self-care (01) ==
LOC: LAB.S 10:50
PROVIDERS: ATTEND Registered Nurse
DX: Z51.81 Encounter for therapeutic drug level monitoring (principal); E78.5 Hyperlipidemia, unspecified; Z79.890 Hormone replacement therapy; J45.30 Mild persistent asthma, uncomplicated; E87.1 Hypo-osmolality and hyponatremia; F32.9 Major depressive disorder, single episode, unspecified; K50.90 Crohn's disease, unspecified, without complications; I10 Essential (primary) hypertension; F17.200 Nicotine dependence, unspecified, uncomplicated
CPT/HCPCS: 36415; 80053; 80061; 83721; 84443; 85025

== ENCOUNTER 2020-01-26 10:40 | Outpatient (CLI) | payer MEDICARE, MEDICAID ==
--- NOTE | 2020-01-26 11:16 | XRAY Report ---
PROCEDURE: Chest 2 View X-Ray INDICATIONS: HIATAL HERNIA TECHNIQUE: 2 view(s) of the chest. COMPARISON: X-ray chest, 04/24/2018, 02/12/2018 and 03/17/2016. FINDINGS: Surgical changes and devices: None. Lungs and pleura: No pleural effusions or pneumothorax. Lungs are clear. Mediastinum: Mediastinal contours are normal. Heart size is normal. There is a small hiatal hernia . Bones and chest wall: No suspicious bony abnormalities. Soft tissues appear unremarkable. IMPRESSION: 1. No acute cardiopulmonary disease. 2. Small hiatal hernia. Reviewed by: Edie Spicer MD on 01/26/2020 11:15 AM PDT Approved by: Edie Spicer MD on 01/26/2020 11:15 AM PDT Station ID: [id number]
== END 2020-01-26 10:41 | disposition home or self-care (01) ==
LOC: DI.S 10:40
PROVIDERS: ATTEND Registered Nurse
DX: K44.9 Diaphragmatic hernia without obstruction or gangrene (principal)
CPT/HCPCS: 71046

== ENCOUNTER 2020-05-21 10:04 | Outpatient (CLI) | payer MEDICARE, MEDICAID | END 2020-05-21 10:05 | disposition short-term general hospital (02) | LOC: EMS 10:04 | DX: R07.9 Chest pain, unspecified (principal); M79.602 Pain in left arm; M54.9 Dorsalgia, unspecified | CPT/HCPCS: A0425; A0427 ==